=== PATIENT | male | born 1950 | race Caucasian/White ===

== ENCOUNTER → 2021-09-23 | Day surgery (SDC) | payer MEDICARE ==
[2021-09-20 10:29] LABS: BASOPHILS # (AUTO) 0.1 (0.0-0.1); BASOPHILS % 0.6 % (0.0-1.0); EOSINOPHILS # (AUTO) 0.2 (0.0-0.4); EOSINOPHILS % 2.4 % (0.0-6.0); HEMATOCRIT 44.8 % (38.2-49.6); LYMPHOCYTES # (AUTO) 2.1 (1.0-3.2); LYMPHOCYTES % 23.7 % (18.0-39.1); MEAN CORPUSCULAR HEMOGLOBIN 30.4 pg (28-32); MEAN CORPUSCULAR HGB CONC 33.5 g/dL (31-35); MEAN CORPUSCULAR VOLUME 90.9 fL (81-99); MONOCYTES # (AUTO) 0.8 (0.2-0.8); MONOCYTES % 9.2 % (4.4-11.3); NEUTROPHILS # (AUTO) 5.6 (2.1-6.9); NEUTROPHILS % 63.8 % (38.7-80.0); PLATELET COUNT 218 x10e3/uL (140-360); RED BLOOD COUNT 4.93 x10e6/uL (4.3-5.7); RED CELL DISTRIBUTION WIDTH 14.2 % (11.7-14.4)
[2021-09-20 10:45] LABS: ANION GAP 12.8 mmol/L (8-16); CALCIUM 7.6 mg/dL (8.4-10.2); CREATININE, SERUM 1.45 mg/dL (0.72-1.25); POTASSIUM 3.8 mmol/L (3.5-5.1)
[~2021-09-23] MED LIST: ACETAMINOPHEN 1000 MG/100 ML IV ONE; AMLODIPINE BESY10 MG PO; B&O 60MG R/S 60 MG SUPP PR ONE; CARVEDILOL3.125 MG PO; DEXAMETHASONE SOD PHOS INJ 4 MG/ML SDV ONE; FLOMAX0.4 MG PO; GENTAMICIN 80MG/NS 100 ML 200 ML IV ONE; GLYCOPYRROLATE INJ 0.2 MG/ML VIAL ONE; IOPAMIDOL 300MG/ML 50ML INFUS..BTL IV ONE; ISOSORBIDE MONO30 MG PO; LIDOCAINE HCL 2% LOCAL INJ 5 ML SDV VIAL INJ ONE; LISINOPRIL-HCT1 EACH PO; NEOMYCIN/POLYMYX/BACITR OINT 0.9 GM PKT ONE; NEURONTIN300 MG PO; ONDANSETRON HCL INJ 2MG/ML 2ML 2 MG/ML VIAL ONE; PIPERACILLIN/TAZOBACTAM 3.375 GM VIAL ONE; POTASSIUM CHLO10 ME1 PO; POVIDONE IODINE 0.05% 0.05 % ML PO ONE; PROPOFOL IV EMULSION 10 MG/ML 20 ML VIAL ONE; SERTRALINE HCL25 MG PO; SEVOFLURANE INHAL SOLN 250 ML PEN BTL ONE; SODIUM CHLORIDE 0.9% 50ML 50 ML ONE
[2021-09-23 15:30] VITALS: BP 165/74
== END | disposition home or self-care (01) ==
LOC: OR 08:16
PROVIDERS: ATTEND Urology
DX: N47.1 Phimosis (principal); C61 Malignant neoplasm of prostate; N41.1 Chronic prostatitis; N39.0 Urinary tract infection, site not specified; N40.0 Benign prostatic hyperplasia without lower urinary tract symptoms; N32.89 Other specified disorders of bladder; N13.8 Other obstructive and reflux uropathy; I10 Essential (primary) hypertension; E78.5 Hyperlipidemia, unspecified; F32.A Depression, unspecified; M19.90 Unspecified osteoarthritis, unspecified site; Z01.810 Encounter for preprocedural cardiovascular examination; Z01.812 Encounter for preprocedural laboratory examination; Z01.818 Encounter for other preprocedural examination; Z20.822 Contact with and (suspected) exposure to COVID-19; Z79.899 Other long term (current) drug therapy
CPT/HCPCS: 36415; 52005; 54161; 55700; 71046; 74420; 76872; 76998; 80048; 85025; 88304; 88305; 93005; C1758; J0131; J1100; J1580; J2001; J2405; J2543; J2704; Q9967; U0002

== ENCOUNTER 2021-09-26 18:11 | Emergency (ER) | payer OTHER ==
[~2021-09-26] VITALS: Ht 172.7 cm; Wt 92.1 kg
[~2021-09-26 18:11] MED LIST changes: -ACETAMINOPHEN 1000 MG/100 ML IV ONE; -B&O 60MG R/S 60 MG SUPP PR ONE; -DEXAMETHASONE SOD PHOS INJ 4 MG/ML SDV ONE; -GENTAMICIN 80MG/NS 100 ML 200 ML IV ONE; -GLYCOPYRROLATE INJ 0.2 MG/ML VIAL ONE; -IOPAMIDOL 300MG/ML 50ML INFUS..BTL IV ONE; -LIDOCAINE HCL 2% LOCAL INJ 5 ML SDV VIAL INJ ONE; -NEOMYCIN/POLYMYX/BACITR OINT 0.9 GM PKT ONE; -ONDANSETRON HCL INJ 2MG/ML 2ML 2 MG/ML VIAL ONE; -PIPERACILLIN/TAZOBACTAM 3.375 GM VIAL ONE; -POVIDONE IODINE 0.05% 0.05 % ML PO ONE; -PROPOFOL IV EMULSION 10 MG/ML 20 ML VIAL ONE; -SEVOFLURANE INHAL SOLN 250 ML PEN BTL ONE; -SODIUM CHLORIDE 0.9% 50ML 50 ML ONE
[2021-09-26 18:55] LABS: BASOPHILS % 0.5 % (0.0-1.0); EOSINOPHILS # (AUTO) 0.2 (0.0-0.4); EOSINOPHILS % 1.8 % (0.0-6.0); HEMOGLOBIN 14.7 g/dL (14.0-18.0); LYMPHOCYTES # (AUTO) 2.1 (1.0-3.2); LYMPHOCYTES % 23.2 % (18.0-39.1); MEAN CORPUSCULAR HEMOGLOBIN 30.8 pg (28-32); MEAN CORPUSCULAR HGB CONC 33.4 g/dL (31-35); MEAN CORPUSCULAR VOLUME 92.1 fL (81-99); MONOCYTES # (AUTO) 0.9 (0.2-0.8); NEUTROPHILS # (AUTO) 5.7 (2.1-6.9); NEUTROPHILS % 64.2 % (38.7-80.0); PLATELET COUNT 225 x10e3/uL (140-360); RED BLOOD COUNT 4.78 x10e6/uL (4.3-5.7); RED CELL DISTRIBUTION WIDTH 14.1 % (11.7-14.4)
[2021-09-26 19:06] LABS: INR 1.05; PROTHROMBIN TIME 14.7 seconds (11.9-14.5)
[2021-09-26 19:07] LABS: PARTIAL THROMBOPLASTIN TIME 38.7 seconds (23.8-35.5)
[2021-09-26 19:13] LABS: ANION GAP 13.5 mmol/L (8-16); CALCIUM 10.4 mg/dL (8.4-10.2); CREATININE, SERUM 1.8 mg/dL (0.72-1.25); POTASSIUM 3.5 mmol/L (3.5-5.1)
[2021-09-26 19:56] LABS: CLARITY,URINE SL CLOUDY (CLEAR); COLOR,URINE ORANGE (YELLOW); KETONES,URINE NEGATIVE (NEGATIVE); LEUKOCYTE ESTERASE ,URINE NEGATIVE (NEGATIVE); NITRITE,URINE POSITIVE (NEGATIVE); PROTEIN,URINE DIPSTICK NEGATIVE (NEGATIVE); URINE UROBILINOGEN 1 mg/dL (0.2 - 1)
[2021-09-26 20:04] LABS: BACTERIA,URINE RARE /HPF; RBC,URINE 21-50 /HPF (0-5); WBC,URINE (MAN) 0-5 /HPF (0-5)
== END 2021-09-26 20:20 | disposition home or self-care (01) ==
LOC: ER 18:15
DX: Z48.01 Encounter for change or removal of surgical wound dressing (principal); R31.9 Hematuria, unspecified; I10 Essential (primary) hypertension
CPT/HCPCS: 36415; 80048; 81001; 85025; 85610; 85730; 87086; 99283

== ENCOUNTER 2021-12-02 07:47 | Inpatient (IN) | payer MEDICARE ==
[2021-11-30 11:22] LABS: BASOPHILS # (AUTO) 0.1 (0.0-0.1); BASOPHILS % 0.8 % (0.0-1.0); EOSINOPHILS # (AUTO) 0.3 (0.0-0.4); EOSINOPHILS % 4.2 % (0.0-6.0); HEMATOCRIT 42.3 % (38.2-49.6); HEMOGLOBIN 13.7 g/dL (14.0-18.0); LYMPHOCYTES # (AUTO) 1.8 (1.0-3.2); LYMPHOCYTES % 25.6 % (18.0-39.1); MEAN CORPUSCULAR HEMOGLOBIN 30.6 pg (28-32); MEAN CORPUSCULAR HGB CONC 32.4 g/dL (31-35); MEAN CORPUSCULAR VOLUME 94.6 fL (81-99); MONOCYTES # (AUTO) 0.8 (0.2-0.8); MONOCYTES % 10.6 % (4.4-11.3); NEUTROPHILS # (AUTO) 4.2 (2.1-6.9); NEUTROPHILS % 58.7 % (38.7-80.0); PLATELET COUNT 221 x10e3/uL (140-360); RED BLOOD COUNT 4.47 x10e6/uL (4.3-5.7); RED CELL DISTRIBUTION WIDTH 15.6 % (11.7-14.4)
[2021-11-30 11:53] LABS: ANION GAP 12.6 mmol/L (8-16); CALCIUM 7.8 mg/dL (8.4-10.2); CREATININE, SERUM 1.68 mg/dL (0.72-1.25); POTASSIUM 3.6 mmol/L (3.5-5.1)
[~2021-12-02] VITALS: Ht 172.7 cm; Wt 92.1 kg
[~2021-12-02 07:47] MED LIST changes: +ASPIRIN81 MG PO; +BACTRIM DS TAB1 EACH PO; +CITRACAL-D3 MA1 EACH PO; +OMEGA-31000 MG PO
[2021-12-02] MEDS ORDERED: GENTAMICIN 80MG/NS 100 ML 200 ML IV ONE (08:07)
[2021-12-02] MEDS ORDERED: CEFTRIAXONE 1 GM VIAL ONE (08:08)
[2021-12-02] MEDS ORDERED: SODIUM CHLORIDE 0.9% 1000ML 1,000 ML ONE (08:24)
[2021-12-02] MEDS ORDERED: IOPAMIDOL 610MG/1ML 300 MG/ML VIAL IV ONE (08:39)
[2021-12-02] MEDS ORDERED: B&O 60MG R/S 60 MG SUPP PR ONE (08:39)
[2021-12-02] MEDS ORDERED: PHENAZOPYRIDINE HCL 100 MG TAB PO PRN (11:00)
[2021-12-02] MEDS ORDERED: B&O 60MG R/S 60 MG SUPP PR PRN (11:00)
[2021-12-02] MEDS ORDERED: DIPHENHYDRAMINE HCL 25 MG CAP PO PRN (11:00)
[2021-12-02] MEDS ORDERED: ONDANSETRON HCL INJ 2MG/ML 2ML 2 MG/ML VIAL IV PRN (11:00)
[2021-12-02] MEDS ORDERED: SODIUM CHLORIDE 0.9% 1000ML 1,000 ML IV SCH (11:00)
[2021-12-02] MEDS ORDERED: FENTANYL CITRATE/PF 100MCG/2 ML INJ ONE ×2 (11:08→16:02)
[2021-12-02 12:15] LABS: BASOPHILS % 0.3 % (0.0-1.0); EOSINOPHILS # (AUTO) 0.2 (0.0-0.4); EOSINOPHILS % 1.5 % (0.0-6.0); HEMATOCRIT 42.5 % (38.2-49.6); HEMOGLOBIN 13.7 g/dL (14.0-18.0); LYMPHOCYTES # (AUTO) 1.6 (1.0-3.2); MEAN CORPUSCULAR HGB CONC 32.2 g/dL (31-35); MEAN CORPUSCULAR VOLUME 96.2 fL (81-99); MONOCYTES # (AUTO) 0.2 (0.2-0.8); MONOCYTES % 2.4 % (4.4-11.3); NEUTROPHILS # (AUTO) 7.8 (2.1-6.9); NEUTROPHILS % 79.3 % (38.7-80.0); PLATELET COUNT 196 x10e3/uL (140-360); RED BLOOD COUNT 4.42 x10e6/uL (4.3-5.7); RED CELL DISTRIBUTION WIDTH 15.4 % (11.7-14.4)
[2021-12-02 13:10] LABS: ANION GAP 15.5 mmol/L (8-16); CREATININE, SERUM 1.47 mg/dL (0.72-1.25); POTASSIUM 4.5 mmol/L (3.5-5.1)
[2021-12-02 13:13] LABS: CALCIUM 6.8 mg/dL (8.4-10.2)
[2021-12-02 14:00] VITALS: BP 133/76
[2021-12-02] MEDS ORDERED: POVIDONE IODINE 0.05% 0.05 % ML PO ONE (14:38)
[2021-12-02] MEDS ORDERED: LIDOCAINE HCL 2% LOCAL INJ 5 ML SDV VIAL INJ ONE (14:38)
[2021-12-02] MEDS ORDERED: ONDANSETRON HCL INJ 2MG/ML 2ML 2 MG/ML VIAL ONE (14:38)
[2021-12-02] MEDS ORDERED: SEVOFLURANE INHAL SOLN 250 ML PEN BTL ONE (14:38)
[2021-12-02] MEDS ORDERED: PROPOFOL IV EMULSION 10 MG/ML 20 ML VIAL ONE (14:38)
[2021-12-02] MEDS ORDERED: EPHEDRINE SULFATE INJ 50 MG/ML VIAL ONE (14:38)
[2021-12-02] MEDS ORDERED: GLYCOPYRROLATE INJ 0.2 MG/ML VIAL ONE (14:38)
[2021-12-02] MEDS ORDERED: DEXAMETHASONE SOD PHOS INJ 4 MG/ML SDV ONE (14:38)
[2021-12-02] MEDS ORDERED: MIDAZOLAM HCL 2 MG/2 ML VIAL ONE (16:02)
[2021-12-02 16:38] VITALS: BP 133/76
[2021-12-02] MEDS ORDERED: DOCUSATE SODIUM 100 MG CAP PO SCH (17:00)
[2021-12-02 17:06] VITALS: BP 113/73
[2021-12-02] MEDS: ACETAMINOPHEN/CODEINE 300MG - 30MG TAB PO PRN (18:32)
[2021-12-02 19:45] VITALS: BP 151/68
[2021-12-02 20:00] VITALS: BP 151/68
[2021-12-02] MEDS ORDERED: CALCIUM CHLORIDE 27.2 MEQ in SODIUM CHLORIDE 0.9% 250ML 250 ML IV ONE (20:00)
[2021-12-02 20:48] LABS: BASOPHILS % 0.2 % (0.0-1.0); HEMATOCRIT 42.9 % (38.2-49.6); HEMOGLOBIN 13.9 g/dL (14.0-18.0); LYMPHOCYTES # (AUTO) 1.3 (1.0-3.2); LYMPHOCYTES % 11.2 % (18.0-39.1); MEAN CORPUSCULAR HEMOGLOBIN 30.8 pg (28-32); MEAN CORPUSCULAR HGB CONC 32.4 g/dL (31-35); MEAN CORPUSCULAR VOLUME 95.1 fL (81-99); MONOCYTES # (AUTO) 0.4 (0.2-0.8); MONOCYTES % 3.8 % (4.4-11.3); NEUTROPHILS # (AUTO) 9.7 (2.1-6.9); NEUTROPHILS % 84.5 % (38.7-80.0); PLATELET COUNT 216 x10e3/uL (140-360); RED BLOOD COUNT 4.51 x10e6/uL (4.3-5.7); RED CELL DISTRIBUTION WIDTH 15.2 % (11.7-14.4)
[2021-12-02] MEDS: DOCUSATE SODIUM 100 MG CAP PO SCH (21:05)
[2021-12-03 00:50] VITALS: BP 147/83
[2021-12-03 05:04] LABS: BASOPHILS % 0.2 % (0.0-1.0); EOSINOPHILS % 0.3 % (0.0-6.0); HEMATOCRIT 40.2 % (38.2-49.6); HEMOGLOBIN 13.1 g/dL (14.0-18.0); LYMPHOCYTES # (AUTO) 1.8 (1.0-3.2); LYMPHOCYTES % 14.2 % (18.0-39.1); MEAN CORPUSCULAR HGB CONC 32.6 g/dL (31-35); MEAN CORPUSCULAR VOLUME 95.3 fL (81-99); MONOCYTES # (AUTO) 0.8 (0.2-0.8); MONOCYTES % 6.4 % (4.4-11.3); NEUTROPHILS # (AUTO) 10.1 (2.1-6.9); NEUTROPHILS % 78.4 % (38.7-80.0); PLATELET COUNT 200 x10e3/uL (140-360); RED BLOOD COUNT 4.22 x10e6/uL (4.3-5.7); RED CELL DISTRIBUTION WIDTH 15.2 % (11.7-14.4)
[2021-12-03 05:18] VITALS: BP 162/80
[2021-12-03 05:28] LABS: ANION GAP 13.3 mmol/L (8-16); CALCIUM 7.9 mg/dL (8.4-10.2); CREATININE, SERUM 1.3 mg/dL (0.72-1.25); POTASSIUM 4.3 mmol/L (3.5-5.1)
[2021-12-03] MEDS ORDERED: HYDRALAZINE HCL 20 MG/ML VIAL IV PRN (07:15)
[2021-12-03] MEDS ORDERED: MAGNESIUM SULFATE 2GM/50ML IV ONE (07:15)
[2021-12-03] MEDS: CALCIUM CARBONATE 500 MG CHEWABLE TABS PO SCH ×2 (08:00→17:00)
[2021-12-03 08:36] VITALS: BP 163/74
[2021-12-03] MEDS: CARVEDILOL 3.125 MG TAB PO SCH ×2 (09:00→20:53)
[2021-12-03] MEDS ORDERED: SODIUM CHLORIDE 0.9% 250ML 250 ML ONE (09:56)
[2021-12-03] MEDS: SERTRALINE HCL 50 MG TAB PO SCH (09:59)
[2021-12-03] MEDS: DOCUSATE SODIUM 100 MG CAP PO SCH ×2 (09:59→20:52)
[2021-12-03] MEDS: ISOSORBIDE MONONITRATE 30 MG TAB CR PO SCH (09:59)
[2021-12-03] MEDS: GABAPENTIN 300 MG CAP PO SCH ×3 (09:59→20:53)
[2021-12-03] MEDS: AMLODIPINE BESYLATE 10 MG TAB PO SCH (09:59)
[2021-12-03] MEDS: ACETAMINOPHEN/CODEINE 300MG - 30MG TAB PO PRN ×2 (10:00→23:47)
[2021-12-03 12:22] VITALS: BP 155/68
[2021-12-03] MEDS: SODIUM BICARBONATE 8.4% 50 ML in SODIUM CHLORIDE 0.45% 1,000 ML IV SCH ×2 (13:30→23:00)
[2021-12-03 16:53] VITALS: BP 149/75
[2021-12-03] MEDS: TAMSULOSIN HCL 0.4 MG CAP PO SCH (17:00)
[2021-12-03 20:00] VITALS: BP 167/75
[2021-12-03] MEDS ORDERED: SODIUM CHLORIDE 0.45% 1,000 ML ONE (21:04)
[2021-12-04] VITALS (7 sets, daily range): BP systolic 133–167; BP diastolic 75–96
[2021-12-04 05:25] LABS: BASOPHILS # (AUTO) 0.1 (0.0-0.1); BASOPHILS % 0.5 % (0.0-1.0); EOSINOPHILS # (AUTO) 0.3 (0.0-0.4); EOSINOPHILS % 2.8 % (0.0-6.0); HEMATOCRIT 40.6 % (38.2-49.6); HEMOGLOBIN 13.3 g/dL (14.0-18.0); LYMPHOCYTES % 20.6 % (18.0-39.1); MEAN CORPUSCULAR HEMOGLOBIN 30.5 pg (28-32); MEAN CORPUSCULAR HGB CONC 32.8 g/dL (31-35); MEAN CORPUSCULAR VOLUME 93.1 fL (81-99); MONOCYTES # (AUTO) 0.9 (0.2-0.8); MONOCYTES % 9.6 % (4.4-11.3); NEUTROPHILS # (AUTO) 6.5 (2.1-6.9); NEUTROPHILS % 66.1 % (38.7-80.0); PLATELET COUNT 187 x10e3/uL (140-360); RED BLOOD COUNT 4.36 x10e6/uL (4.3-5.7); RED CELL DISTRIBUTION WIDTH 15.2 % (11.7-14.4)
[2021-12-04 05:50] LABS: ANION GAP 14.5 mmol/L (8-16); CREATININE, SERUM 1.22 mg/dL (0.72-1.25); POTASSIUM 3.5 mmol/L (3.5-5.1)
[2021-12-04 05:53] LABS: CALCIUM 6.8 mg/dL (8.4-10.2)
[2021-12-04] MEDS: ACETAMINOPHEN/CODEINE 300MG - 30MG TAB PO PRN ×2 (06:12→20:52)
[2021-12-04] MEDS: CALCIUM CARBONATE 500 MG CHEWABLE TABS PO SCH ×2 (08:00→17:00)
[2021-12-04] MEDS: DOCUSATE SODIUM 100 MG CAP PO SCH ×2 (09:00→20:51)
[2021-12-04] MEDS: GABAPENTIN 300 MG CAP PO SCH ×3 (09:00→20:52)
[2021-12-04] MEDS: AMLODIPINE BESYLATE 10 MG TAB PO SCH (09:00)
[2021-12-04] MEDS: SERTRALINE HCL 50 MG TAB PO SCH (09:00)
[2021-12-04] MEDS: CARVEDILOL 3.125 MG TAB PO SCH ×2 (09:00→20:51)
[2021-12-04] MEDS: ISOSORBIDE MONONITRATE 30 MG TAB CR PO SCH (09:00)
[2021-12-04] MEDS: TAMSULOSIN HCL 0.4 MG CAP PO SCH (17:00)
[2021-12-05 00:01] VITALS: BP 138/76
[2021-12-05] MEDS: ACETAMINOPHEN/CODEINE 300MG - 30MG TAB PO PRN (04:32)
[2021-12-05 05:18] LABS: ALBUMIN 3.2 g/dL (3.5-5.0); CALCIUM 7.5 mg/dL (8.4-10.2); CREATININE, SERUM 1.22 mg/dL (0.72-1.25)
[2021-12-05 05:54] VITALS: BP 134/84
[2021-12-05 07:52] VITALS: BP 162/80
[2021-12-05] MEDS ORDERED: POTASSIUM CHLORIDE 10MEQ EA PO SCH (09:00)
[2021-12-05 09:11] VITALS: BP 162/80
[2021-12-05] MEDS ORDERED: POTASSIUM CHLORIDE 10MEQ EA PO ONE (09:15)
[2021-12-05] MEDS: DOCUSATE SODIUM 100 MG CAP PO SCH (09:41)
[2021-12-05] MEDS: CALCIUM CARBONATE 500 MG CHEWABLE TABS PO SCH (09:41)
[2021-12-05] MEDS: ISOSORBIDE MONONITRATE 30 MG TAB CR PO SCH (09:41)
[2021-12-05] MEDS: CARVEDILOL 3.125 MG TAB PO SCH (09:41)
[2021-12-05] MEDS: GABAPENTIN 300 MG CAP PO SCH (09:42)
[2021-12-05] MEDS: SERTRALINE HCL 50 MG TAB PO SCH (09:42)
[2021-12-05] MEDS: AMLODIPINE BESYLATE 10 MG TAB PO SCH (09:42)
[2021-12-05 11:32] VITALS: BP 130/80
[2021-12-05] MEDS ORDERED: ONDANSETRON HCL 4 MG ORAL DISINTEGRATING TAB PO PRN ×2 (11:45)
== END 2021-12-05 12:45 | disposition home or self-care (01) | DRG 707 ==
LOC: OR 07:47 → PACU V 11:07 → MED/SURG 13:36
PROVIDERS: ADMIT Internal Medicine; ATTEND Internal Medicine
PROC: BT141ZZ Fluoroscopy of Kidneys, Ureters and Bladder using Low Osmolar Contrast (ICD-10-PCS; 2021-12-02)
PROC: 0V504ZZ Destruction of Prostate, Percutaneous Endoscopic Approach (ICD-10-PCS; principal; 2021-12-02 09:14)
PROC: 0T788ZZ Dilation of Bilateral Ureters, Via Natural or Artificial Opening Endoscopic (ICD-10-PCS; 2021-12-02 09:14)
DX: C61 Malignant neoplasm of prostate (principal); N13.8 Other obstructive and reflux uropathy; N40.1 Benign prostatic hyperplasia with lower urinary tract symptoms; N32.3 Diverticulum of bladder; E83.51 Hypocalcemia; R31.0 Gross hematuria; Z20.822 Contact with and (suspected) exposure to COVID-19; R33.8 Other retention of urine; R97.20 Elevated prostate specific antigen [PSA]; E66.9 Obesity, unspecified; Z68.30 Body mass index [BMI] 30.0-30.9, adult; I12.9 Hypertensive chronic kidney disease with stage 1 through stage 4 chronic kidney disease, or unspecified chronic kidney disease; N18.9 Chronic kidney disease, unspecified; F17.210 Nicotine dependence, cigarettes, uncomplicated; R39.14 Feeling of incomplete bladder emptying; N47.6 Balanoposthitis; E87.6 Hypokalemia
CPT/HCPCS: 36415; 74420; 80048; 80053; 82310; 83735; 85025; 88305; 94799; 99251; C1758; J0610; J0696; J1100; J1580; J2001; J2250; J2405; J3010; J3475; J7030; J7050

== ENCOUNTER 2024-02-11 13:51 | Inpatient (IN) | payer MEDICARE ==
[~2024-02-11] VITALS: Ht 172.7 cm; Wt 92.1 kg
[2024-02-11 14:43] LABS: BASOPHILS # (AUTO) 0.1 (0.0-0.1); BASOPHILS % 0.5 % (0.0-1.0); EOSINOPHILS # (AUTO) 0.3 (0.0-0.4); EOSINOPHILS % 2.8 % (0.0-6.0); HEMATOCRIT 36.9 % (38.2-49.6); HEMOGLOBIN 11.7 g/dL (14.0-18.0); LYMPHOCYTES # (AUTO) 1.4 (1.0-3.2); LYMPHOCYTES % 13.7 % (18.0-39.1); MEAN CORPUSCULAR HEMOGLOBIN 31.2 pg (28-32); MEAN CORPUSCULAR HGB CONC 31.7 g/dL (31-35); MEAN CORPUSCULAR VOLUME 98.4 fL (81-99); MONOCYTES % 9.8 % (4.4-11.3); NEUTROPHILS # (AUTO) 7.5 (2.1-6.9); NEUTROPHILS % 72.8 % (38.7-80.0); PLATELET COUNT 290 x10e3/uL (140-360); RED BLOOD COUNT 3.75 x10e6/uL (4.3-5.7); RED CELL DISTRIBUTION WIDTH 14.8 % (11.7-14.4); WHITE BLOOD COUNT 10.24 x10e3/uL (4.8-10.8)
[2024-02-11 15:00] LABS: BILIRUBIN,URINE NEGATIVE (NEGATIVE); CLARITY,URINE SL CLOUDY (CLEAR); COLOR,URINE GREEN (YELLOW); GLUCOSE, URINE NEGATIVE (NEGATIVE); KETONES,URINE NEGATIVE (NEGATIVE); LEUKOCYTE ESTERASE ,URINE SMALL (NEGATIVE); NITRITE,URINE POSITIVE (NEGATIVE); PH,URINE 5.5 (5 - 7); PROTEIN,URINE DIPSTICK 1+ (NEGATIVE); URINE UROBILINOGEN 0.2 mg/dL (0.2 - 1)
[2024-02-11 15:03] LABS: BACTERIA,URINE MANY /HPF
[2024-02-11 15:05] LABS: INR 1.02; PARTIAL THROMBOPLASTIN TIME 32.8 seconds (23.8-35.5); PROTHROMBIN TIME 13.9 seconds (11.9-14.5)
[2024-02-11 15:10] LABS: ALBUMIN 4.2 g/dL (3.5-5.0); ALBUMIN/GLOBULIN RATIO 1.4 (0.8-2.0); ANION GAP 16.1 mmol/L (8-16); BILIRUBIN,TOTAL 0.3 mg/dL (0.2-1.2); CALCIUM 7.2 mg/dL (8.4-10.2); POTASSIUM 4.1 mmol/L (3.5-5.1); TOTAL PROTEIN 7.1 g/dL (6.5-8.1)
[2024-02-11] MEDS: MEROPENEM 1 GM in SODIUM CHLORIDE 0.9% 100 ML IV SCH (16:25)
[2024-02-11 17:29] VITALS: PULSE 71; RESP 18; TEMP 98.6
[2024-02-11 18:10] VITALS: BP 147/80; PULSE 79; RESP 18; TEMP 98.4; O2SAT 99
[2024-02-11] MEDS: ACETAMINOPHEN/CODEINE 300MG - 30MG TAB PO PRN (19:27)
[2024-02-11 20:00] VITALS: BP 158/83; PULSE 85; RESP 20; TEMP 98.7; O2SAT 100
[2024-02-11] MEDS: METOPROLOL TARTRATE 25 MG TAB PO SCH (21:17)
[2024-02-12] VITALS (8 sets, daily range): BP systolic 115–168; BP diastolic 62–73; PULSE 67–79; RESP 14–20; TEMP 97.4–99.3; O2SAT 93–98
[2024-02-12 05:35] LABS: BASOPHILS # (AUTO) 0.1 (0.0-0.1); BASOPHILS % 0.6 % (0.0-1.0); EOSINOPHILS # (AUTO) 0.3 (0.0-0.4); EOSINOPHILS % 2.3 % (0.0-6.0); HEMATOCRIT 36.5 % (38.2-49.6); HEMOGLOBIN 11.7 g/dL (14.0-18.0); LYMPHOCYTES # (AUTO) 1.3 (1.0-3.2); LYMPHOCYTES % 10.9 % (18.0-39.1); MEAN CORPUSCULAR HGB CONC 32.1 g/dL (31-35); MEAN CORPUSCULAR VOLUME 96.6 fL (81-99); MONOCYTES # (AUTO) 1.1 (0.2-0.8); MONOCYTES % 9.3 % (4.4-11.3); NEUTROPHILS # (AUTO) 9.3 (2.1-6.9); NEUTROPHILS % 76.6 % (38.7-80.0); PLATELET COUNT 265 x10e3/uL (140-360); RED BLOOD COUNT 3.78 x10e6/uL (4.3-5.7); RED CELL DISTRIBUTION WIDTH 14.6 % (11.7-14.4); WHITE BLOOD COUNT 12.12 x10e3/uL (4.8-10.8)
[2024-02-12 06:00] LABS: ANION GAP 15.8 mmol/L (8-16); CALCIUM 7.2 mg/dL (8.4-10.2); CREATININE, SERUM 0.81 mg/dL (0.72-1.25); POTASSIUM 3.8 mmol/L (3.5-5.1)
[2024-02-12] MEDS ORDERED: DEXTROSE 50% SYRINGE 50 ML IV PRN (07:15)
[2024-02-12] MEDS: INSULIN REGULAR, HUMAN 100 UNIT/1 ML SQ SCH (07:30)
[2024-02-12 07:34] LABS: CHOL/HDL RATIO 2.6 (3.9-4.7)
[2024-02-12] MEDS: CARVEDILOL 3.125 MG TAB PO SCH (08:26)
[2024-02-12] MEDS: SERTRALINE HCL 50 MG TAB PO SCH (08:27)
[2024-02-12] MEDS: GABAPENTIN 300 MG CAP PO SCH (08:27)
[2024-02-12] MEDS: ISOSORBIDE MONONITRATE 30 MG TAB CR PO SCH (08:28)
[2024-02-12] MEDS: FAMOTIDINE 20 MG TAB PO SCH (08:28)
[2024-02-12] MEDS: AMLODIPINE BESYLATE 10 MG TAB PO SCH (08:29)
[2024-02-12] MEDS: TAMSULOSIN HCL 0.4 MG CAP PO SCH (08:29)
[2024-02-12] MEDS: OMEGA 3 POLYUNSAT FATTY ACIDS 1000 MG SOFTGEL PO SCH (08:30)
[2024-02-12] MEDS: ENOXAPARIN SOD INJ 40 MG/0.4 ML SYR SC SCH (16:50)
[2024-02-13 04:00] VITALS: BP 152/63; PULSE 75; RESP 20; TEMP 98.9; O2SAT 94
[2024-02-13 05:37] LABS: BASOPHILS # (AUTO) 0.1 (0.0-0.1); BASOPHILS % 0.4 % (0.0-1.0); EOSINOPHILS # (AUTO) 0.3 (0.0-0.4); EOSINOPHILS % 2.8 % (0.0-6.0); HEMATOCRIT 36.9 % (38.2-49.6); HEMOGLOBIN 12.1 g/dL (14.0-18.0); LYMPHOCYTES # (AUTO) 1.5 (1.0-3.2); LYMPHOCYTES % 12.8 % (18.0-39.1); MEAN CORPUSCULAR HEMOGLOBIN 31.1 pg (28-32); MEAN CORPUSCULAR HGB CONC 32.8 g/dL (31-35); MEAN CORPUSCULAR VOLUME 94.9 fL (81-99); MONOCYTES # (AUTO) 1.1 (0.2-0.8); MONOCYTES % 8.8 % (4.4-11.3); NEUTROPHILS % 74.9 % (38.7-80.0); PLATELET COUNT 272 x10e3/uL (140-360); RED BLOOD COUNT 3.89 x10e6/uL (4.3-5.7); RED CELL DISTRIBUTION WIDTH 14.1 % (11.7-14.4); WHITE BLOOD COUNT 11.98 x10e3/uL (4.8-10.8)
[2024-02-13 06:05] LABS: ANION GAP 14.5 mmol/L (8-16); CALCIUM 7.2 mg/dL (8.4-10.2); CREATININE, SERUM 0.84 mg/dL (0.72-1.25); POTASSIUM 3.5 mmol/L (3.5-5.1)
[2024-02-13 08:21] VITALS: BP 157/74; PULSE 71; RESP 18; TEMP 97.9; O2SAT 95
[2024-02-13 09:00] VITALS: BP 157/74; PULSE 71; RESP 18; TEMP 97.9; O2SAT 95
[2024-02-13] MEDS: DOCUSATE SODIUM 100 MG CAP PO SCH (10:40)
[2024-02-13] MEDS: SENNOSIDES 8.6 MG TAB PO SCH (10:41)
[2024-02-13 11:29] VITALS: BP 132/70; PULSE 70; RESP 18; TEMP 98.4; O2SAT 96
[2024-02-13 20:11] VITALS: BP 139/93; PULSE 86; RESP 21; TEMP 98.8; O2SAT 99
[2024-02-13 21:30] VITALS: BP 139/93; PULSE 86; RESP 21; TEMP 98.8; O2SAT 99
[2024-02-14] VITALS (8 sets, daily range): BP systolic 131–161; BP diastolic 62–89; PULSE 63–79; RESP 18–20; TEMP 97.2–99.2; O2SAT 94–96
[2024-02-14 05:35] LABS: BASOPHILS # (AUTO) 0.1 (0.0-0.1); BASOPHILS % 0.7 % (0.0-1.0); EOSINOPHILS # (AUTO) 0.4 (0.0-0.4); EOSINOPHILS % 3.7 % (0.0-6.0); HEMATOCRIT 38.3 % (38.2-49.6); HEMOGLOBIN 12.5 g/dL (14.0-18.0); LYMPHOCYTES # (AUTO) 1.5 (1.0-3.2); LYMPHOCYTES % 14.3 % (18.0-39.1); MEAN CORPUSCULAR HEMOGLOBIN 31.3 pg (28-32); MEAN CORPUSCULAR HGB CONC 32.6 g/dL (31-35); MONOCYTES # (AUTO) 1.1 (0.2-0.8); MONOCYTES % 10.1 % (4.4-11.3); NEUTROPHILS # (AUTO) 7.4 (2.1-6.9); NEUTROPHILS % 70.9 % (38.7-80.0); PLATELET COUNT 251 x10e3/uL (140-360); RED BLOOD COUNT 3.99 x10e6/uL (4.3-5.7); RED CELL DISTRIBUTION WIDTH 13.9 % (11.7-14.4); WHITE BLOOD COUNT 10.44 x10e3/uL (4.8-10.8)
[2024-02-14 06:05] LABS: ANION GAP 11.7 mmol/L (8-16); CALCIUM 7.8 mg/dL (8.4-10.2); CREATININE, SERUM 0.85 mg/dL (0.72-1.25); POTASSIUM 3.7 mmol/L (3.5-5.1)
[2024-02-15] VITALS (7 sets, daily range): BP systolic 109–171; BP diastolic 66–80; PULSE 59–79; RESP 17–18; TEMP 98–98.2; O2SAT 94–97
[2024-02-15] MEDS: HYDRALAZINE HCL 10 MG TAB PO SCH (15:07)
[2024-02-15] MEDS ORDERED: FAMOTIDINE20 MG PO (18:29)
[2024-02-15] MEDS ORDERED: Docusate Sodium PO (18:29)
[2024-02-15] MEDS ORDERED: HIPREX1 GM PO (18:29)
[2024-02-15] MEDS ORDERED: SENOKOT8.6 MG PO (18:29)
[2024-02-16] VITALS: BP 147/85; PULSE 69; RESP 20; TEMP 98.4; O2SAT 98
[2024-02-16 04:00] VITALS: BP 157/82; PULSE 65; RESP 20; TEMP 98.6; O2SAT 100
[2024-02-16 09:13] VITALS: BP 133/78; PULSE 75; RESP 20; TEMP 98.3; O2SAT 95
== END 2024-02-16 10:23 | disposition home or self-care (01) | DRG 690 ==
LOC: ER 13:55 → ERHOLD 15:20 → MED/SURG3 17:38
PROVIDERS: ADMIT Internal Medicine; ATTEND Internal Medicine
PROC: 0T9B70Z Drainage of Bladder with Drainage Device, Via Natural or Artificial Opening (ICD-10-PCS; principal; 2024-02-11)
DX: N39.0 Urinary tract infection, site not specified (principal); Z16.12 Extended spectrum beta lactamase (ESBL) resistance; Z16.24 Resistance to multiple antibiotics; B96.1 Klebsiella pneumoniae [K. pneumoniae] as the cause of diseases classified elsewhere; N45.3 Epididymo-orchitis; N50.3 Cyst of epididymis; I86.1 Scrotal varices; C61 Malignant neoplasm of prostate; R33.9 Retention of urine, unspecified; R31.29 Other microscopic hematuria; K59.00 Constipation, unspecified; E11.9 Type 2 diabetes mellitus without complications; E66.9 Obesity, unspecified; Z68.30 Body mass index [BMI] 30.0-30.9, adult; Z71.3 Dietary counseling and surveillance; Z11.52 Encounter for screening for COVID-19
CPT/HCPCS: 36415; 51700; 74018; 76870; 80048; 80053; 80061; 81001; 82948; 83036; 85025; 85610; 85730; 87086; 87186; 93976; 96372; 99252; 99284; J1650; J2185; J7050; U0002

== ENCOUNTER → 2024-04-23 | Day surgery (SDC) | payer MEDICARE ==
[2024-04-22 13:20] LABS: BASOPHILS # (AUTO) 0.1 (0.0-0.1); BASOPHILS % 0.7 % (0.0-1.0); EOSINOPHILS # (AUTO) 0.3 (0.0-0.4); EOSINOPHILS % 2.9 % (0.0-6.0); HEMATOCRIT 40.1 % (38.2-49.6); HEMOGLOBIN 12.5 g/dL (14.0-18.0); LYMPHOCYTES # (AUTO) 1.7 (1.0-3.2); MEAN CORPUSCULAR HEMOGLOBIN 30.6 pg (28-32); MEAN CORPUSCULAR HGB CONC 31.2 g/dL (31-35); MONOCYTES # (AUTO) 0.8 (0.2-0.8); MONOCYTES % 9.3 % (4.4-11.3); NEUTROPHILS # (AUTO) 5.8 (2.1-6.9); NEUTROPHILS % 66.9 % (38.7-80.0); PLATELET COUNT 270 x10e3/uL (140-360); RED BLOOD COUNT 4.09 x10e6/uL (4.3-5.7); RED CELL DISTRIBUTION WIDTH 14.4 % (11.7-14.4); WHITE BLOOD COUNT 8.64 x10e3/uL (4.8-10.8)
[2024-04-22 13:49] LABS: ANION GAP 15.1 mmol/L (8-16); CALCIUM 7.2 mg/dL (8.4-10.2); CREATININE, SERUM 1.02 mg/dL (0.72-1.25); POTASSIUM 4.1 mmol/L (3.5-5.1)
[~2024-04-23] MED LIST changes: +ACETAMINOPHEN 1000 MG/100 ML IV ONE; +BUPIVACAINE HCL 0.5% INJ 30 ML VIAL INJ ONE; +DEXAMETHASONE SOD PHOS INJ 4 MG/ML SDV ONE; +Docusate Sodium PO; +EPHEDRINE SULFATE INJ 50 MG/ML VIAL ONE; +FAMOTIDINE20 MG PO; +FENTANYL CITRATE/PF 100MCG/2 ML INJ ONE; +FERROCITE324 MG; +GABAPENTIN600 MG; +HIPREX1 GM PO; +IOPAMIDOL 610MG/1ML 300 MG/ML VIAL IV ONE; +LIDOCAINE 1% W/EPINEPHRINE 20 ML VIAL ONE; +LIDOCAINE HCL 2% LOCAL INJ 5 ML SDV VIAL INJ ONE; +NITROFURANTOIN100 MG PO; +ONDANSETRON HCL INJ 2MG/ML 2ML 2 MG/ML VIAL ONE; +PROPOFOL IV EMULSION 10 MG/ML 20 ML VIAL ONE; +SENOKOT8.6 MG PO; +SEVOFLURANE INHAL SOLN 250 ML PEN BTL ONE; +SIMVASTATIN40 MG PO
[2024-04-23] MEDS: LACTATED RINGER'S 1,000 ML ONE (07:00)
[2024-04-23] MEDS: GENTAMICIN 80MG/NS 100 ML 200 ML IV ONE (07:00)
[2024-04-23] MEDS: PHENAZOPYRIDINE HCL 100 MG TAB ONE (10:30)
[2024-04-23] MEDS: MEROPENEM 1 GM VIAL ONE (10:40)
[2024-04-23] MEDS: ACETAMINOPHEN/CODEINE 300MG - 30MG TAB ONE (11:00)
[2024-04-23 11:30] VITALS: BP 151/99; PULSE 73; RESP 16; O2SAT 97
== END | disposition home or self-care (01) ==
LOC: OR 06:06
PROVIDERS: ATTEND Urology
DX: N39.0 Urinary tract infection, site not specified (principal); R33.8 Other retention of urine; N45.3 Epididymo-orchitis; C61 Malignant neoplasm of prostate; N40.1 Benign prostatic hyperplasia with lower urinary tract symptoms; R35.1 Nocturia; N47.1 Phimosis; E29.1 Testicular hypofunction; N32.89 Other specified disorders of bladder; N32.3 Diverticulum of bladder; Z98.890 Other specified postprocedural states; I10 Essential (primary) hypertension; R06.02 Shortness of breath; E66.01 Morbid (severe) obesity due to excess calories; G89.29 Other chronic pain; M19.90 Unspecified osteoarthritis, unspecified site; F32.A Depression, unspecified; F17.200 Nicotine dependence, unspecified, uncomplicated; Z01.810 Encounter for preprocedural cardiovascular examination; Z01.812 Encounter for preprocedural laboratory examination; Z01.818 Encounter for other preprocedural examination; Z79.899 Other long term (current) drug therapy
CPT/HCPCS: 36415; 51040; 54520; 71046; 74420; 80048; 85025; 87071; 87075; 87086; 87186; 87205; 88305; 93005; C1758; J0131; J1100; J1580; J2003; J2185; J2405; J2704; J3010; J7121; Q9967

== ENCOUNTER → 2024-12-10 | Day surgery (SDC) | payer MEDICARE ==
[2024-12-09 10:46] LABS: BASOPHILS # (AUTO) 0.1 (0.0-0.1); BASOPHILS % 0.7 % (0.0-1.0); EOSINOPHILS # (AUTO) 0.2 (0.0-0.4); EOSINOPHILS % 2.9 % (0.0-6.0); HEMATOCRIT 39.6 % (38.2-49.6); HEMOGLOBIN 13.2 g/dL (14.0-18.0); LYMPHOCYTES # (AUTO) 1.7 (1.0-3.2); LYMPHOCYTES % 20.5 % (18.0-39.1); MEAN CORPUSCULAR HEMOGLOBIN 30.5 pg (28-32); MEAN CORPUSCULAR HGB CONC 33.3 g/dL (31-35); MEAN CORPUSCULAR VOLUME 91.5 fL (81-99); MONOCYTES # (AUTO) 0.8 (0.2-0.8); MONOCYTES % 9.3 % (4.4-11.3); NEUTROPHILS # (AUTO) 5.6 (2.1-6.9); NEUTROPHILS % 66.4 % (38.7-80.0); PLATELET COUNT 205 x10e3/uL (140-360); RED BLOOD COUNT 4.33 x10e6/uL (4.3-5.7); RED CELL DISTRIBUTION WIDTH 14.5 % (11.7-14.4); WHITE BLOOD COUNT 8.39 x10e3/uL (4.8-10.8)
[2024-12-09 11:09] LABS: CREATININE, SERUM 1.14 mg/dL (0.72-1.25)
[2024-12-09 11:15] LABS: CALCIUM 6.9 mg/dL (8.4-10.2)
[~2024-12-10] MED LIST changes: +ACETAMINOPHEN 1000 MG/100 ML 100 ML IV ONE; -ACETAMINOPHEN 1000 MG/100 ML IV ONE; +BOTULINUM TOXIN TYPE A 100 UNIT VIAL IM ONE; -BUPIVACAINE HCL 0.5% INJ 30 ML VIAL INJ ONE; +CALCITRIOL0.25 MCG PO; +CEFTRIAXONE 1 GM VIAL ONE; -DEXAMETHASONE SOD PHOS INJ 4 MG/ML SDV ONE; -EPHEDRINE SULFATE INJ 50 MG/ML VIAL ONE; +GENTAMICIN 80MG/NS 100 ML 200 ML IV ONE; +GLYCOPYRROLATE INJ 0.2 MG/ML VIAL ONE; -IOPAMIDOL 610MG/1ML 300 MG/ML VIAL IV ONE; +LASIX20 MG PO; -LIDOCAINE 1% W/EPINEPHRINE 20 ML VIAL ONE; +OXYBUTYNIN CHLOR5 MG PO; +SODIUM CHLORIDE 0.9% 1000ML 1,000 ML ONE; +[UNRECOGNIZED DRUG - OTHER]
[2024-12-10 13:51] VITALS: TEMP 97.5
[2024-12-10] MEDS: FENTANYL CITRATE/PF 100MCG/2 ML INJ ONE (14:10)
[2024-12-10] MEDS: PHENAZOPYRIDINE HCL 100 MG TAB ONE (14:20)
[2024-12-10 14:50] VITALS: BP 152/98; PULSE 66; RESP 16; O2SAT 96
== END | disposition home or self-care (01) ==
LOC: OR 08:27
PROVIDERS: ATTEND Urology
DX: N39.41 Urge incontinence (principal); N35.812 Other bulbous urethral stricture, male; R33.8 Other retention of urine; C61 Malignant neoplasm of prostate; N13.8 Other obstructive and reflux uropathy; N39.0 Urinary tract infection, site not specified; Z43.5 Encounter for attention to cystostomy; N40.1 Benign prostatic hyperplasia with lower urinary tract symptoms; R35.1 Nocturia; Z79.890 Hormone replacement therapy; Z98.890 Other specified postprocedural states; I10 Essential (primary) hypertension; Z87.891 Personal history of nicotine dependence; R05.3 Chronic cough; E66.01 Morbid (severe) obesity due to excess calories; E78.5 Hyperlipidemia, unspecified; M06.9 Rheumatoid arthritis, unspecified; M19.90 Unspecified osteoarthritis, unspecified site; F31.9 Bipolar disorder, unspecified; Z01.812 Encounter for preprocedural laboratory examination; Z79.899 Other long term (current) drug therapy; Z92.3 Personal history of irradiation; Z68.30 Body mass index [BMI] 30.0-30.9, adult
CPT/HCPCS: 36415 ×2; 51710; 52281; 74420; 80048; 82310; 82948; 85025; 87086; 87186; 93005; C1758; C1769; J0131; J0587; J0696; J1580; J2003; J2405; J2704; J3010; J7030